=== PATIENT | male | born 1960 | race Caucasian/White ===

== ENCOUNTER 2018-03-22 13:34 | Day surgery (SDC) | payer BC ==
[~2018-03-22 13:34] MED LIST: Lactated Ringers 1,000 ML IV SCH; Sodium Chloride 0.9% 10 ML Syringe FLUSH PRN
[2018-03-22] MEDS ORDERED: Propofol 200 MG/20 ML SDV ONE ×3 (14:20→14:24)
--- NOTE | 2018-03-22 14:26 | PCM.PN ---
- General Info Date of Service: 03/22/18 - Review of Systems Systems Review Comment:: 57 y/o male here for colonoscopy. He is medically stable to proceed with no significant recent changes in its health status. His recent history and physical is reviewed. I discussed the proposed colonoscopy with the patient risks such as but not limited to bleeding and GI injury reviewed. He appears to understand and agrees to proceed. - Patient Data Vitals - Most Recent: Last Vital Signs Temp 97.5 F 03/22/18 13:56 Pulse 78 03/22/18 13:56 Resp 20 03/22/18 13:56 BP 126/86 03/22/18 13:56 Pulse Ox 96 03/22/18 13:56 Weight - Most Recent: 97.976 kg Med Orders - Current: Current Medications Lactated Ringer's (Ringers, Lactated) 1,000 mls @ 125 mls/hr IV ASDIRECTED LUKASZ Last Admin: 03/22/18 14:13 Dose: 125 mls/hr Sodium Chloride (Saline Flush) 10 ml FLUSH ASDIRECTED PRN PRN Reason: Keep Vein Open Discontinued Medications Propofol (Diprivan 20 Ml) Confirm Administered Dose 400 mg .ROUTE .STK-MED ONE Stop: 03/22/18 14:21 - Problem List Review Problem List Initiated/Reviewed/Updated: Yes - Assessment Assessment:: Colon cancer screening - Plan Plan:: Colonoscopy
--- NOTE | 2018-03-22 14:52 | PCM.OPNOTE ---
- General Post-Op/Procedure Note Date of Surgery/Procedure: 03/22/18 Operative Procedure(s): Colonoscopy Findings: Normal-appearing colon Pre Op Diagnosis: Colon cancer screening Post-Op Diagnosis: Normal Colon Anesthesia Technique: MAC Primary Surgeon: Heath Leone Pathology: none Output, Urine Amount: 0 EBL in mLs: 0 Complications: None Condition: Good Free Text/Narrative:: Intake & Output 03/21/18 03/22/18 03/22/18 22:59 06:59 14:59 Intake Total 500 Balance 500
[2018-03-22 15:28] VITALS: BP 136/87
--- NOTE | 2018-03-23 08:43 | OR ---
Date of Procedure: 03/22/2018 PREOPERATIVE DIAGNOSIS: Colon cancer screening. POSTOPERATIVE DIAGNOSIS: Normal colon. OPERATION PERFORMED: Colonoscopy. INDICATIONS FOR SURGERY: This 57-year-old male is referred for a screening colonoscopy. It has been several years since his last colon exam. FINDINGS: The patient's colon appears normal. The mucosa appears healthy. No polyps were seen during today's exam. DESCRIPTION OF PROCEDURE: The patient was taken to the operating room. He was given intravenous sedation, and with him in the left lateral decubitus position, digital rectal exam was performed showing no rectal masses. The Olympus colonoscope was inserted into the rectum. Retroflexed examination of the rectal canal was performed. The scope was then carefully advanced under direct visualization through the entire length of the colon until the cecum was reached. Cecal acquisition was confirmed by noting the normal internal cecal anatomy including the appendiceal orifice and ileocecal valve. The scope was also noted to transilluminate the abdominal wall in the right lower quadrant. After examining the cecum, the scope was slowly withdrawn, sequentially re- examining the colonic segments. Once the entire colon and rectum had been fully examined, the scope was removed and the patient was taken from the operating room in satisfactory condition. ESTIMATED BLOOD LOSS: Zero. COMPLICATIONS: None. PROGNOSIS: Good. JAE Leone MD /[id number]
== END 2018-03-22 15:35 | disposition home or self-care (01) ==
LOC: LL.SDS 13:34
PROVIDERS: ATTEND Surgery
DX: Z12.11 Encounter for screening for malignant neoplasm of colon (principal); E78.1 Pure hyperglyceridemia; Z87.891 Personal history of nicotine dependence
CPT/HCPCS: 45378; J2704; J7120

== ENCOUNTER → 2019-10-04 | Outpatient (CLI) | payer BC ==
[~2019-10-04] MED LIST changes: +FLU Vacc QS2019-20(6MOS+)/PF 60 MCG/0.5 ML SYRINGE ONE; -Lactated Ringers 1,000 ML IV SCH; -Sodium Chloride 0.9% 10 ML Syringe FLUSH PRN
[2019-10-04 08:34] LABS: HEMOGLOBIN A1C 5.9 % (4.3-5.7)
[2019-10-04 08:53] LABS: CHLORIDE,CL 107 mmol/L (98-107); SODIUM,NA 143 mmol/L (136-145)
== END ==
LOC: LL.CLIN 08:10
PROVIDERS: ATTEND Nurse Practitioner
DX: Z00.00 Encounter for general adult medical examination without abnormal findings (principal); E78.5 Hyperlipidemia, unspecified; R73.9 Hyperglycemia, unspecified
CPT/HCPCS: 36415; 80053; 80061; 83036; 85025